=== PATIENT | male | born 1970 ===

== ENCOUNTER 2017-12-25 16:09 | Emergency (ER) | payer MEDICAID ==
[2017-12-25] MEDS ORDERED: Sodium Chloride 0.9% 1,000 ML IV ONE (16:36)
--- NOTE | 2017-12-25 16:40 | C.PDOC ---
History Of Present Illness 47 year old male with PMHx of HTN and HLD presents to the ED complaining of abdominal pain, diarrhea and vomiting for one day. Reports he ate a seafood dinner 2 days ago. Denies any fever, chills, urinary symptoms or any other complaints. Time Seen by Provider: 12/25/17 16:29 Chief Complaint (Nursing): GI Problem History Per: Patient History/Exam Limitations: no limitations Onset/Duration Of Symptoms: Days Location Of Pain/Discomfort: Diffuse Associated Symptoms: Nausea, Vomiting, Diarrhea. denies: Fever, Chills Past Medical History Reviewed: Historical Data, Nursing Documentation, Vital Signs Vital Signs: Last Vital Signs Temp 98.2 F 12/25/17 16:17 Pulse 108 H 12/25/17 16:17 Resp 20 12/25/17 16:17 BP 143/92 H 12/25/17 16:17 Pulse Ox 98 12/25/17 16:17 - Medical History PMH: Back Problems, COPD, Diabetes (borderline), HTN, Hypercholesterolemia, Pneumothorax (left sided with chest tube) Denies: HIV, Chronic Kidney Disease Other Surgeries: Hx of surgeries Family History: States: Unknown Family Hx, CAD, Hypertension - Social History Hx Tobacco Use: Yes Hx Alcohol Use: No Hx Substance Use: No - Immunization History Hx Tetanus Toxoid Vaccination: No Hx Influenza Vaccination: No Hx Pneumococcal Vaccination: No Review Of Systems Except As Marked, All Systems Reviewed And Found Negative. Constitutional: Negative for: Fever, Chills Gastrointestinal: Positive for: Vomiting, Abdominal Pain, Diarrhea Genitourinary: Negative for: Dysuria, Hematuria Physical Exam - Physical Exam Appears: Non-toxic, No Acute Distress Skin: Warm, Dry, No Rash Head: Atraumatic, Normacephalic Eye(s): bilateral: Normal Inspection Nose: Normal Oral Mucosa: Moist Neck: Normal ROM, Supple Chest: Symmetrical Cardiovascular: Rhythm Regular Respiratory: Normal Breath Sounds, No Rales, No Rhonchi, No Wheezing Gastrointestinal/Abdominal: Soft, Tenderness (nonfocal tenderness ), No Guarding, No Rebound Extremity: Bilateral: Atraumatic, Normal Color And Temperature, Normal ROM Neurological/Psych: Oriented x3, Normal Speech Gait: Steady ED Course And Treatment - Laboratory Results Result Diagrams: 12/25/17 16:46 12/25/17 16:46 O2 Sat by Pulse Oximetry: 98 (RA) Pulse Ox Interpretation: Normal - Radiology CXR: Interpreted by Me, Viewed By Me, Read By Radiologist CXR Interpretation: Yes: No Acute Disease - CT Scan/US CT abd Other Rad Studies (CT/US): Read By Radiologist, Radiology Report Reviewed CT/US Interpretation: Accession No. : [id number]. Patient Name / ID : MAX BANEGAS / [id number]. Exam Date : 12/25/2017 18:00:52 ( Approved ). Study Comment : Sex / Age : M / 47Y. Creator : Michoacano Martínez MD. Dictator : Michoacano Martínez MD. Senior Datastage Developer : Reporting Process Consultant : Michoacano Martínez MD. Approver2 : Report Date : 12/25/2017 18:30:54. My Comment : . Date of service: 12/25/2017. PROCEDURE: CT Abdomen and Pelvis with contrast. HISTORY: Abdominal pain, vomiting diarrhea. COMPARISON: None. TECHNIQUE: Intravenous contrast dose: 100 cc Omnipaque 300. Radiation dose: Total exam DLP = 1015.16 mGy-cm. This CT exam was performed using one or more of the following dose reduction techniques: Automated exposure control, adjustment of the mA and/or kV according to patient size, and/or use of iterative reconstruction technique. FINDINGS: LOWER THORAX: Patulous esophagus. LIVER: Hepatic steatosis. No focal masses. No intrahepatic bile duct dilatation or perihepatic ascites. Incidental findi ng(s): Tiny less than 5 mm hepatic cysts. GALLBLADDER AND BILE DUCTS: Unremarkable. PANCREAS: Unremarkable. No gross lesion or ductal dilatation. SPLEEN: Unremarkable. ADRENALS: Unremarkable. No mass. KIDNEYS AND URETERS: Unremarkable. No hydronephrosis. No solid mass. VASCULATURE: Unremarkable. No aortic aneurysm. No atherosclerotic calcification or mural plaque present. BOWEL: Fluid-filled loops of nondilated small bowel the overall appearance may represent mild enteritis. APPENDIX: A normal appendix is visualized in it's entirety. PERITONEUM: Unremarkable. No free fluid. No free air. LYMPH NODES: Unremarkable. No enlarged lymph nodes. BLADDER: Unremarkable. REPRODUCTIVE: Unremarkable. BONES: No acute fracture. OTHER FINDINGS: None. IMPRESSION: Vent ink suggestive of mild enteritis without mechanical obstruction. Additional benign and/or incidental findings described above. Medical Decision Making Medical Decision Making: ro colitis pancreatitis pud Plan - Bloodwork - Zofran 4mg IVP - Protonix 40mg IVP - IV fluids - UA labs neg. pt reports persistent pain and nausea. advised will treat with non narcotics. pt accpeted by dr lord for obs. shortly after admission, pt asks to go home. states will return with worsening. 12/15/2017 1 12/14/2017 OXYCODONE-ACETAMINOPHEN 10-325 60.0 15 [place] MAHENDRA [id number] [facility] (9873) 0 60.0 [place] 12/02/2017 1 12/02/2017 OXYCODONE-ACETAMINOPHEN 10-325 60.0 15 MA MARC [id number] HEALT (9873) 0 60.0 [place] 11/26/2017 1 08/27/2017 ZOLPIDEM TARTRATE 10 MG TABLET 30.0 30 MA MARC [id number] [facility] (9873) 3 [place] 11/19/2017 1 11/18/2017 OXYCODONE-ACETAMINOPHEN 10-325 60.0 15 MA MARC [id number] [facility]ALT (9873) 0 60.0 [place] 11/06/2017 1 11/02/2017 OXYCODONE-ACETAMINOPHEN 10-325 60.0 15 MA MARC [id number] HEALT (9873) 0 60.0 [place] 10/29/2017 1 08/27/2017 ZOLPIDEM TARTRATE 10 MG TABLET 30.0 30 MA MARC [id number] [facility] (9873) 2 [place] 10/24/2017 1 10/21/2017 OXYCODONE-ACETAMINOPHEN 10-325 60.0 15 MA MARC [id number] [facility]ALT (9873) 0 60.0 [place] 10/11/2017 1 10/08/2017 OXYCODONE-ACETAMINOPHEN 10-325 60.0 15 MA MARC [id number] [facility] (9873) 0 60.0 [place] 10/05/2017 1 08/27/2017 ZOLPIDEM TARTRATE 10 MG TABLET 30.0 30 MA MARC [id number] [facility] (9873) 1 [place] 09/28/2017 1 09/24/2017 OXYCODONE-ACETAMINOPHEN 10-325 60.0 15 [place] MARC [id number] [facility]ALT (9873) 0 60.0 [place] 09/14/2017 1 09/12/2017 OXYCODONE-ACETAMINOPHEN 10-325 60.0 15 MA MARC [id number] [facility] (9873) 0 60.0 [place] 09/08/2017 1 08/27/2017 ZOLPIDEM TARTRATE 10 MG TABLET 30.0 30 MA MARC [id number] [facility] (9873) 0 [place] 08/31/2017 1 08/27/2017 OXYCODONE-ACETAMINOPHEN 10-325 60.0 15 MA MARC [id number] [facility] (9873) 0 60.0 [place] 08/17/2017 1 08/13/2017 OXYCODONE-ACETAMINOPHEN 10-325 60.0 15 MA MARC [id number] [facility] (9873) 0 60.0 [place] 08/13/2017 1 08/13/2017 ZOLPIDEM TARTRATE 10 MG TABLET 30.0 30 SE PAR [id number] [facility] (9873) 0 [place] 08/03/2017 1 07/30/2017 OXYCODONE-ACETAMINOPHEN 10-325 60.0 15 MA MARC [id number] [facility] (9873) 0 60.0 [place] 07/20/2017 1 07/18/2017 OXYCODONE-ACETAMINOPHEN 10-325 60.0 15 MA MARC [id number] [facility] (9873) 0 60.0 [place] 07/20/2017 1 07/16/2017 ZOLPIDEM TARTRATE 10 MG TABLET 30.0 30 SE PAR [id number] [facility] (9873) 0 [place] 07/07/2017 1 07/02/2017 OXYCODONE-ACETAMINOPHEN 10-325 60.0 15 MA MARC [id number] [facility]ALT (9873) 0 60.0 [place] 06/22/2017 1 06/22/2017 OXYCODONE-ACETAMINOPHEN 10-325 60.0 15 MA MARC [id number] [facility] (9873) 0 60.0 [place] 06/22/2017 1 02/06/2017 ZOLPIDEM TARTRATE 10 MG TABLET 30.0 30 SE PAR [id number] [facility] (9873) 3 [place] 06/08/2017 1 06/08/2017 ENDOCET 10-325 MG TABLET 60.0 15 MA MARC [id number] [facility] (9873) 0 60.0 [place] 05/25/2017 1 05/22/2017 OXYCODONE-ACETAMINOPHEN 10-325 60.0 15 MA MARC [id number] [facility] (9873) 0 60.0 [place] 05/25/2017 1 02/06/2017 ZOLPIDEM TARTRATE 10 MG TABLET 30.0 30 SE PAR [id number] [facility] (9873) 3 [place] 05/11/2017 1 05/08/2017 OXYCODONE-ACETAMINOPHEN 10-325 60.0 15 MA MARC [id number] [facility] (9873) 0 60.0 [place] 04/27/2017 1 04/20/2017 OXYCODONE-ACETAMINOPHEN 10-325 60.0 15 MA MARC [id number] [facility] (9873) 0 60.0 [place] 04/13/2017 1 04/13/2017 OXYCODONE-ACETAMINOPHEN 10-325 60.0 15 MA MARC [id number] [facility] (9873) 0 60.0 [place] 04/02/2017 1 02/06/2017 ZOLPIDEM TARTRATE 10 MG TABLET 30.0 30 SE PAR [id number] [facility] (9873) 2 [place] 03/31/2017 1 03/31/2017 OXYCODONE-ACETAMINOPHEN 10-325 60.0 15 MA MARC [id number] [facility] (9873) 0 60.0 [place] 03/16/2017 1 03/16/2017 OXYCODONE-ACETAMINOPHEN 10-325 60.0 15 MA MARC [id number] [facility]ALT (9873) 0 60.0 [place] 03/07/2017 1 02/06/2017 ZOLPIDEM TARTRATE 10 MG TABLET 30.0 30 SE PAR [id number] [facility] (9873) 1 [place] 02/24/2017 1 02/24/2017 OXYCODONE-ACETAMINOPHEN 10-325 60.0 15 MA MARC [id number] [facility]ALT (8068) 0 60.0 [place] 02/24/2017 1 02/24/2017 OXYCODONE-ACETAMINOPHEN 10-325 60.0 15 MA MARC [id number] [facility] (9873) 0 60.0 [place] 02/10/2017 1 02/06/2017 OXYCODONE-ACETAMINOPHEN 10-325 60.0 15 MA MARC [id number] HEALT (8068) 0 60.0 [place] 02/10/2017 1 02/06/2017 OXYCODONE-ACETAMINOPHEN 10-325 60.0 15 MA MARC [id number] [facility]ALT (9873) 0 60.0 [place] 02/07/2017 1 02/06/2017 ZOLPIDEM TARTRATE 10 MG TABLET 30.0 30 SE PAR [id number] [facility] (8068) 0 [place] 01/26/2017 2 01/26/2017 OXYCODONE-ACETAMINOPHEN 10-325 60.0 15 MA MARC [id number] [facility] (5699) 0 60.0 [place] 01/12/2017 1 01/12/2017 OXYCODONE-ACETAMINOPHEN 10-325 60.0 15 MA MARC [id number] HEALT (8068) 0 60.0 [place] 01/12/2017 1 09/01/2016 ZOLPIDEM TARTRATE 10 MG TABLET 30.0 30 MA MARC [id number] [facility] (8068) 3 [place] 12/29/2016 1 12/29/2016 OXYCODONE-ACETAMINOPHEN 10-325 60.0 15 MA MARC [id number] [facility] (8068) 0 60.0 [place] Disposition - Disposition Referrals: Torrey Cherry MD [Staff Provider] - Disposition: HOME/ ROUTINE Disposition Time: 16:40 Condition: STABLE Additional Instructions: return to er with worsening symptosm or concerns. you are declining obs in the hospital. you are able to return with worsening. Prescriptions: Ciprofloxacin HCl [Cipro] 500 mg PO BID #20 tab Metronidazole [Flagyl] 500 mg PO TID #30 tab Instructions: Acute Abdomen (Belly Pain), Viral Gastroenteritis, Adult (DC) Forms: [employer] (Jamaican) - Clinical Impression Clinical Impression: Enteritis - Scribe Statement The provider has reviewed the documentation as recorded by the Scribe Enedelia Morris All medical record entries made by the Segunibe were at my direction and personally dictated by me. I have reviewed the chart and agree that the record accurately reflects my personal performance of the history, physical exam, medical decision making, and the department course for this patient. I have also personally directed, reviewed, and agree with the discharge instructions and disposition.
[2017-12-25] MEDS ORDERED: Sodium Chloride 0.9% 1,000 ML ONE (16:50)
[2017-12-25 16:51] LABS: BASO % 0.5 % (0.0-2.0); EOS # 0.1 K/uL (0.0-0.7); EOS % 1.6 % (0.0-4.0); HEMOGLOBIN 15.2 g/dL (12.0-18.0); LYMPH # 1.2 K/uL (1.0-4.3); LYMPH % 24.3 % (20.0-40.0); MEAN CORPUSCULAR HGB CONC 34.5 g/dL (33.0-37.0); MEAN PLATELET VOLUME 7.8 fL (7.2-11.7); MONO # 0.6 K/uL (0.0-0.8); MONO % 11.7 % (0.0-10.0); NEUT % 61.9 % (50.0-75.0); NRBC % 0.1 % (0.0-2.0); RBC 4.89 Mil/uL (4.40-5.90); RED CELL DISTRIBUTION WIDTH 13.5 % (11.5-14.5); WHITE BLOOD COUNT 4.8 K/uL (4.8-10.8)
[2017-12-25 17:01] LABS: INR 1.1; PROTHROMBIN TIME 11.6 SECONDS (9.7-12.2)
[2017-12-25 17:03] LABS: ALB/GLOB RATIO 1.4 (1.0-2.1); ALBUMIN 4.1 g/dL (3.5-5.0); ALT/SGPT 28 U/L (21-72); AST/SGOT 21 U/L (17-59); BILIRUBIN,DIRECT 0.4 mg/dL (0.0-0.4); BLOOD UREA NITROGEN 12 mg/dL (9-20); CALCIUM 8.6 mg/dl (8.6-10.4); GFR NON-AFRICAN AMERICAN > 60; LIPASE 283 U/L (23-300)
[2017-12-25 17:20] LABS: URINE BILIRUBIN NEGATIVE (NEGATIVE); URINE BLOOD 1+ (NEGATIVE); URINE CLARITY Clear (Clear); URINE COLOR Yellow (YELLOW); URINE GLUCOSE (UA) NORMAL (Normal); URINE LEUKOCYTE ESTERASE NEG Leu/uL (Negative); URINE PROTEIN NEGATIVE (NEGATIVE); URINE UROBILINOGEN NORMAL mg/dL (0.2-1.0)
[2017-12-25] MEDS ORDERED: Aluminum Hydroxide/Magnesium Hydroxide Susp (30 mL) PO STA (17:43)
[2017-12-25] MEDS ORDERED: Iohexol 300 100 ML IJ ONE (17:50)
[2017-12-25] MEDS ORDERED: Aluminum Hydroxide/Magnesium Hydroxide Susp (30 mL) ONE (18:34)
--- NOTE | 2017-12-25 18:34 | CT ---
Date of service: 12/25/2017 PROCEDURE: CT Abdomen and Pelvis with contrast HISTORY: Abdominal pain, vomiting diarrhea COMPARISON: None. TECHNIQUE: Intravenous contrast dose: 100 cc Omnipaque 300. Radiation dose: Total exam DLP = 1015.16 mGy-cm. This CT exam was performed using one or more of the following dose reduction techniques: Automated exposure control, adjustment of the mA and/or kV according to patient size, and/or use of iterative reconstruction technique. FINDINGS: LOWER THORAX: Patulous esophagus. LIVER: Hepatic steatosis. No focal masses. No intrahepatic bile duct dilatation or perihepatic ascites. Incidental finding(s): Tiny less than 5 mm hepatic cysts. GALLBLADDER AND BILE DUCTS: Unremarkable. PANCREAS: Unremarkable. No gross lesion or ductal dilatation. SPLEEN: Unremarkable. ADRENALS: Unremarkable. No mass. KIDNEYS AND URETERS: Unremarkable. No hydronephrosis. No solid mass. VASCULATURE: Unremarkable. No aortic aneurysm. No atherosclerotic calcification or mural plaque present. BOWEL: Fluid-filled loops of nondilated small bowel the overall appearance may represent mild enteritis. APPENDIX: A normal appendix is visualized in it's entirety. PERITONEUM: Unremarkable. No free fluid. No free air. LYMPH NODES: Unremarkable. No enlarged lymph nodes. BLADDER: Unremarkable. REPRODUCTIVE: Unremarkable. BONES: No acute fracture. OTHER FINDINGS: None. IMPRESSION: Vent ink suggestive of mild enteritis without mechanical obstruction. Additional benign and/or incidental findings described above.
--- NOTE | 2017-12-25 18:51 | RAD ---
Date of service: 12/25/2017 HISTORY: abd pain COMPARISON: No prior. FINDINGS: LUNGS: No active pulmonary disease. PLEURA: No significant pleural effusion identified, no pneumothorax apparent. CARDIOVASCULAR: No atherosclerotic calcification present No radiographic findings to suggest acute or significant cardiovascular disease. OSSEOUS STRUCTURES: No significant abnormalities. VISUALIZED UPPER ABDOMEN: Normal. OTHER FINDINGS: None. IMPRESSION: No active disease.
[2017-12-25 18:54] VITALS: BP 128/90; PULSE 94; RESP 18; TEMP 97.9
[2017-12-25 18:55] VITALS: O2SAT 98
== END 2017-12-25 19:04 | disposition home or self-care (01) ==
LOC: C.ER 16:09
DX: K52.9 Noninfective gastroenteritis and colitis, unspecified (principal); I10 Essential (primary) hypertension; E78.00 Pure hypercholesterolemia, unspecified
CPT/HCPCS: 71045; 74177; 80053; 81001; 82248; 83690; 85025; 85610; 85730; 96374; 96375; 99285; C9113; J2405; J7030; Q9967